=== PATIENT | female | born 1980 | race Caucasian/White ===

== ENCOUNTER → 2017-06-14 | Outpatient (CLI) | payer OTHER ==
[~2017-06-14] MED LIST: LEVOTHYROXIN0.125 M1 NG; NAPROSYN500 M1 PO; NORCO 325 MG-51 TAB PO; PHENERGAN 25MG.25 M1 PO; ROBAXIN-750750 MG PO
== END ==
LOC: LAB 16:59
DX: N39.0 Urinary tract infection, site not specified (principal); A49.9 Bacterial infection, unspecified; R30.9 Painful micturition, unspecified

== ENCOUNTER 2017-07-07 09:03 | Emergency (ER) | payer OTHER ==
[~2017-07-07] VITALS: Ht 160 cm; Wt 60.8 kg
--- NOTE | 2017-07-07 09:14 | Emergency Room Report ---
History of Present Illness Time Seen by MD Jacobo Presenting Problem in Triage Pt arrived:Walked Presenting Problem:RLQ ABDOMINAL PAIN SINCE YESTERDAY, WORSENING. DESCRIBES STABBING, PAIN WOKE UP PATIENT FROM SLEEP. ENDORSES NAUSEA. 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 N Clinical Suspician of Infection? N Mental Status: 1 - Regular (Normal Baseline) Sepsis Risk:Low Sepsis Risk Have you (or family members/close friends) recently traveled outside the [place]? N If Yes, where/when: Have you had exposure to infectious disease within the past month? TB? Other? Specify: Comment Patient complains of RIGHT lower quadrant abdominal pain that began yesterday and worsened today. It radiates toward her umbilicus and around towards her RIGHT lateral side. She denies back pain. She has nausea but no vomiting. No diarrhea, constipation or fever. No unusual vaginal bleeding. Previous uterine ablation. Denies previous similar pain. She went to Dr. Guerrero's office today, but was sent here without provider evaluation because of a concern for appendicitis. ALLERGIES Coded Allergies: morphine (Intermediate, "MAKES ME HOT INSIDE" 06/16/17) Home Medications Reported Medications Levothyroxine Sodium 0.125 MG NG DAILY #30 History Medical History General Angina: No [place]: No Hypertension? No Hyperlipidemia? No CHF? No COPD? No Asthma? Yes Hernia? No CVA? No Seizures? No Diabetes? No UTI? Yes Stones? No GB Disease: Yes Hepatitis? No Cataracts? No Glaucoma? No MRSA? No TB? No Cancer? 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 Review of Systems All Other Systems Reviewed and Negative Constitutional denies fever Gastrointestinal abdominal pain, denies constipation, denies diarrhea, nausea, denies vomiting Genitourinary denies: abnormal vaginal bleeding, dysuria, frequency. Physical Exam Vital Signs Vital Signs Date Time Temp Pulse Resp B/P Pulse O2 O2 Flow FiO2 Ox Delivery Rate 07/07 1028 97.9 79 20 120/74 100 07/07 0958 79 20 120/74 100 07/07 0910 97.9 79 20 143/87 100 General Appearance normal appearance, WD/WN Eye Exam - bilateral eye normal exam, bilateral eye PERRL, bilateral eye EOMI Ear, Nose, Throat hearing grossly normal, normal ENT inspection Neck normal inspection, non-tender, supple, full range of motion Respiratory Status Yes: trachea midline, chest symmetrical. No: respiratory distress. Lung Sounds bilateral: normal breath sounds, lungs clear. Cardiovascular normal exam, regular rate/rhythm, no peripheral edema, no gallop, no JVD, no murmur, no rub, normal peripheral pulses Gastrointestinal normal bowel sounds, normal exam, non tender, soft, no organomegaly Back no CVA tenderness Extremities normal inspection Neurologic alert, oriented x 3 Mental status normal mood/affect Skin intact, normal color, warm/dry Medical Decision Making LABS/Meds/Orders Pt receiving controlled substance in ED? No Comment 9:20 AM: Patient refuses pain medication. Results/Orders Laboratory Tests 07/07/17 0910: Sodium 138, Potassium 3.5, Chloride 103, Carbon Dioxide 29, BUN 13, Creatinine 1.0, Estimated Creat Clear 74, Estimated GFR (MDRD) 62, Glucose 93, Calcium 8.8, Total Bilirubin 0.9, AST 14 L, ALT 15, Alkaline Phosphatase 76, Total Protein 8.6 H, Albumin 4.3, Globulin 4.3 H, Albumin/Globulin Ratio 1.0 L, Amylase 81, Lipase 146, WBC 5.1, RBC 4.27, Hgb 13.0, Hct 37.9, MCV 88.7, RDW 12.7, Plt Count 275, MPV 7.9, Gran % 60.6, Gran # 3.1, Lymphocytes % 32.5, Monocytes % 4.9, Eosinophils % 1.5, Basophils % 0.5, Lymphocytes # 1.6, Monocytes # 0.3, Eosinophils # 0.1, Basophils # 0.0, PUBS MCHC 34.2, MCH 30.3, Urine Color YELLOW , Urine Appearance SL CLOUDY, Urine pH 6.5, Ur Specific [place] 1.020, Urine Protein NEGATIVE, Urine Ketones NEGATIVE, Urine Blood NEGATIVE, Urine Nitrate NEGATIVE, Urine Bilirubin NEGATIVE, Urine Urobilinogen 0.2, Ur Leukocyte Esterase NEGATIVE, Urine WBC 3-5, Ur Squamous Epith Cells 5-10, Urine Bacteria 3 +, Urine Mucus 1+, Urine Glucose NEGATIVE Current Medication Orders Sig/Carl Start time Last Medication Dose Route Stop Time Status Admin Iopamidol 75 ML ONCE ONE 07/07 1000 DCD 07/07 IV 07/07 1001 1000 Sodium Chloride 10 ML ONCE ONE 07/07 1000 DCD 07/07 IV 07/07 1001 1000 Sodium Chloride 1,000 ML .STK-MED ONE 07/07 0957 DC IV Sodium Chloride 10 ML PRN PRN 07/07 0930 DCD IV 07/08 0917 Sodium Chloride 1,000 ML .Q1H1M 07/07 09 DC 07/07 IV 07/07 1030 0921 Sodium Chloride 10 ML PRN PRN 07/07 0930 DCD IV 07/08 0918 Orders Procedure Date/time Status DIET-NOTHING BY MOUTH 07/07 L Active URINALYSIS/COMPLETE 07/07 922 Complete URINE 07/[address] ABD W/RLQ PAIN REQ 07/07 917 Complete IV SALINE LOCK 07/07 917 Active LIPASE 07/07 917 Complete CBC WITH AUTO DIFF 07/07 917 Complete CHEM 12 PROFILE 07/07 917 Complete AMYLASE 07/07 917 Complete CULTURE, URINE 07/07 910 Active XRAY/CT/US XRAY/CT/US CT abdomen, pelvis Comment CT scan interpreted by radiologist: No acute intra-abdominal or pelvic pathology. No evidence of appendicitis or obstructing ureteral calculus. Departure Departure Disposition DC Home or Self Care(routine) Clinical Impression Primary Impression: Abdominal pain, acute, right lower quadrant Condition STABLE Referrals ELVIA SIMPSON (Family) Patient Instructions DI for Abdominal Pain-Adult Additional Instructions Ibuprofen or Aleve for pain. Additional instructions for ABDOMINAL PAIN: Follow-up he is here physician next week if not resolved. Return immediately if worsening abdominal pain, vomiting, shortness of breath, fever, vomiting of blood or abdominal distention. ED Critical Care Critical Care No at 1051
[2017-07-07 09:30] LABS: LYMPH # 1.6 K/mm3 (0.7-4.5); LYMPH % 32.5 % (10-50.0)
[2017-07-07 09:31] LABS: URINE BILIRUBIN - DIPSTICK NEGATIVE (NEG); URINE BLOOD NEGATIVE (NEG)
--- NOTE | 2017-07-07 10:10 | RADIOLOGY REPORT PS360 ---
CT ABD PELVIS W/ CONTRAST CLINICAL INDICATION: Right lower quadrant pain with nausea RLQ ABD PAIN ORDERING PHYSICIAN: Mikey Mcintosh MD PATIENT AGE: 36 years COMPARISON: 04/21/2014 TECHNIQUE: Axial images obtained with sagittal and coronal reformats. PROCEDURE: Oral Contrast: None IV Contrast: 75 mL Isovue-370. FINDINGS: The lung bases are clear. There are small hypodensities scattered throughout the liver and may represents hepatic cyst not significant change. There is some mild intrahepatic biliary dilatation as well as dilated common hepatic and common bile duct. Patient has had a prior cholecystectomy which may contribute to these findings. Is not significantly changed. Spleen, pancreas, and adrenal glands have an unremarkable appearance. No renal mass or hydronephrosis or obstructing ureteral calculus evident. Unremarkable appendix. No evidence of intestinal obstruction or free air. No evidence of diverticulitis. There is mild prominence of the endometrium. This is of questionable clinical significance. Please correlate with patient's phase of menstruation. No acute bony anomalies IMPRESSION: 1. No acute intra-abdominal or pelvic pathology. No evidence of appendicitis or obstructing ureteral calculus 2. Prior cholecystectomy with biliary dilatation as before. 3. Prominent low attenuation of the endometrium of questionable clinical significance
[2017-07-07 10:28] VITALS: BP 120/74
--- OUTSIDE RECORDS SUMMARY | 2017-07-08 19:18 | External Medical Summary Rpt | CCD ---
Demographics Preferred Language Faroese Marital Status Unknown Zoroastrianism Affiliation Unknown Race Unknown Ethnic Group Unknown Author Author [facility] Address Unknown Phone Immunization No patient found.
--- OUTSIDE RECORDS SUMMARY | 2017-07-08 19:18 | External Medical Summary Rpt | CCD ---
Author Author , CYN ADDISON Address Unknown Phone [email or web address] Purpose Continuity of Care Document - 06-16-2017 through 2016 Problems Code Diagnosis DOS Provider Status R10.9 UNSPECIFIED ABDOMINAL PAIN S76.019A STRAIN OF MUSCLE, FASCIA AND TENDON OF UNSP HIP, INIT ENCNTR
--- OUTSIDE RECORDS SUMMARY | 2017-07-08 19:18 | External Medical Summary Rpt | CCD ---
Author Author [employer] Organization [employer] Address Unknown Phone Unavailable Purpose Continuity of Care Document - through 2016
--- OUTSIDE RECORDS SUMMARY | 2017-07-08 19:18 | External Medical Summary Rpt | CCD ---
Demographics Preferred Language Faroese Marital Status Unknown Restorationism Affiliation Unknown Race Unknown Ethnic Group Unknown Author Author [facility] Address Unknown Phone Immunization No patient found.
--- OUTSIDE RECORDS SUMMARY | 2017-07-08 19:18 | External Medical Summary Rpt ---
Author Author [employer] Sumit, [employer] Organization [employer] Address Unknown Phone Unavailable Results Choriogonadotropin [Units/volume] in Serum or Plasma Observa Value Referen Units Interpr Notes Date tion ce etation Range COMMENTS TO TURF SALES PERSON: GOT WITH IV Choriogon NEG No No No Sep 22 adotropin informati informati informati 2017 8:40 on in on in on in AM [Units/vo source source source lume] in data data data Serum or Plasma Basic metabolic panel in Blood Observa Value Referen Units Interpr Notes Date tion ce etation Range COMMENTS TO TURF SALES PERSON: GOT WITH IV Urea 7 - 18 mg/dL Normal No Sep 22 nitrogen informati 2017 8:40 [Mass/vol on in AM ume] in source Serum or data Plasma Calcium 8.5 - mg/dL Normal No Sep 22 [Mass/vol 10.1 informati 2017 8:40 ume] in on in AM Serum or source Plasma data Chloride 98 - 107 mmoL/L Normal No Sep 22 [Moles/vo informati 2017 8:40 lume] in on in AM Serum or source Plasma data Carbon 21.0 - mmoL/L Normal No Sep 22 dioxide, 32.0 informati 2017 8:40 total on in AM [Moles/vo source lume] in data Serum or Plasma Creatinin 0.55 - mg/dL Normal No Sep 22 e 1.02 informati 2017 8:40 [Mass/vol on in AM ume] in source Serum or data Plasma Estimated 59- ML/MIN No REFERENCE Sep 22 informati RANGE: 2017 8:40 glomerula on in >60 AM r source ML/MIN/1. filtratio data 73 SQUARE n rate METERSIf (GF this patient is -A merican, then multiply theresult by 1.210. Glucose 74 - 106 mg/dL Normal No Sep 22 [Mass/vol informati 2017 8:40 ume] in on in AM Serum or source Plasma data Potassium 3.5 - 5.1 mmoL/L Low No Sep 22 informati 2017 8:40 [Moles/vo on in AM lume] in source Serum or data Plasma Sodium 136 - 145 mmoL/L Normal No Sep 22 [Moles/vo informati 2017 8:40 lume] in on in AM Serum or source Plasma data CBC W Auto Differential panel in Blood Observa Value Referen Units Interpr Notes Date tion ce etation Range COMMENTS TO TURF SALES PERSON: GOT WITH IV Basophils 0 - 0.2 K/MM3 Normal No Sep 22 informati 2017 8:40 [#/volume on in AM ] in source Blood by data Automated count Basophils 0.1 - 2.0 % Normal No Sep 22 /100 informati 2017 8:40 leukocyte on in AM s in source Blood by data Automated count Eosinophi 0.0 - 0.4 K/mm3 Normal No Sep 22 ls informati 2017 8:40 [#/volume on in AM ] in source Blood by data Automated count Eosinophi 0.1 - % Normal No Sep 22 ls/100 12.0 informati 2016 8:40 leukocyte on in AM s in source Blood by data Automated count Granulocy 1.8 - 7.8 K/mm3 Normal No Sep 22 ramón informati 2017 8:40 [#/volume on in AM ] in source Blood by data Automated count Granulocy 37.0 - % Normal No Sep 22 ramón/100 80.0 informati 2017 8:40 leukocyte on in AM s in source Blood by data Automated count Hematocri 37.0 - % Normal No Sep 22 t [Volume 47.0 informati 2017 8:40 on in AM Fraction] source of Blood data Hemoglobi 12.2 - g/dL Normal No Sep 22 n 16.2 informati 2016 8:40 [Mass/vol on in AM ume] in source Blood data Lymphocyt 0.7 - 4.5 K/mm3 Normal No Sep 22 es informati 2016 8:40 [#/volume on in AM ] in source Unspecifi data ed specimen by Automated count Lymphocyt 10 - 50.0 % Normal No Sep 22 es informati 2016 8:40 [#/volume on in AM ] in source Unspecifi data ed specimen by Automated count Erythrocy 27 - 31.2 pg Normal No Sep 22 te mean informati 2016 8:40 corpuscul on in AM ar source hemoglobi data n [Entitic mass] Erythrocy 31.8 - g/dl Normal No Sep 22 te mean 35.4 informati 2017 8:40 corpuscul on in AM ar source hemoglobi data n concentra tion [Mass/vol ume] by Automated count Erythrocy 82.2 - fl Normal No Sep 22 te mean 97.8 informati 2017 8:40 corpuscul on in AM ar volume source [Entitic data volume] by Automated count Monocytes 0.1 - 1.0 K/mm3 Normal No Sep 22 informati 2017 8:40 [#/volume on in AM ] in source Blood by data Automated count Monocytes 1.7 - 9.3 % Normal No Sep 22 /100 informati 2017 8:40 leukocyte on in AM s in source Blood by data Automated count Platelet 7.4 - fl Normal No Sep 22 mean 10.4 informati 2017 8:40 volume on in AM [Entitic source volume] data in Blood by Automated count Platelets 142 - 424 K/mm3 Normal No Sep 22 informati 2017 8:40 [#/volume on in AM ] in source Blood data Erythrocy 4.2 - 5.4 M/mm3 Normal No Sep 22 ramón informati 2017 8:40 [#/volume on in AM ] in source Amniotic data fluid Erythrocy 11.5 - % Normal No Sep 22 te 17.5 informati 2016 8:40 distribut on in AM ion width source [Entitic data volume] by Automated count Leukocyte 4.8 - K/MM3 Normal No Sep 22 s 10.8 informati 2016 8:40 [#/volume on in AM ] in source Blood data
--- OUTSIDE RECORDS SUMMARY | 2017-07-08 19:18 | External Medical Summary Rpt | CCD ---
Author Author , CYN ADDISON Address Unknown Phone [email or web address] Purpose Continuity of Care Document - 06-16-2017 through 2016 Problems Code Diagnosis DOS Provider Status R10.9 UNSPECIFIED ABDOMINAL PAIN S76.019A STRAIN OF MUSCLE, FASCIA AND TENDON OF UNSP HIP, INIT ENCNTR
--- OUTSIDE RECORDS SUMMARY | 2017-07-08 19:18 | External Medical Summary Rpt ---
Author Author [employer] Sumit, [employer] Organization [employer] Address Unknown Phone Unavailable Results Choriogonadotropin [Units/volume] in Serum or Plasma Observa Value Referen Units Interpr Notes Date tion ce etation Range COMMENTS TO LINE PATROLLER: GOT WITH IV Choriogon NEG No No No Sep 22 adotropin informati informati informati 2017 8:40 on in on in on in AM [Units/vo source source source lume] in data data data Serum or Plasma Basic metabolic panel in Blood Observa Value Referen Units Interpr Notes Date tion ce etation Range COMMENTS TO LINE PATROLLER: GOT WITH IV Urea 7 - 18 [...] Date tion ce etation Range COMMENTS TO LINE PATROLLER: GOT WITH IV Basophils 0 - 0.2 [...]
== END 2017-07-07 10:36 | disposition home or self-care (01) ==
LOC: ER 09:03
PROVIDERS: Emergency Medicine
DX: R10.31 Right lower quadrant pain (principal); Z88.6 Allergy status to analgesic agent
CPT/HCPCS: Q9967

== ENCOUNTER → 2017-07-10 | Outpatient (CLI) | payer OTHER ==
[2017-07-10 11:27] LABS: HEMOGLOBIN 13.5 g/dL (12.2-16.2); LYMPH # 1.6 K/mm3 (0.7-4.5); LYMPH % 30.8 % (10-50.0)
== END ==
LOC: LAB 11:12
PROVIDERS: Physician Assistant
DX: R10.31 Right lower quadrant pain (principal)

== ENCOUNTER 2017-07-12 09:22 | Day surgery (SDC) | payer OTHER ==
--- NOTE | 2017-07-12 12:39 | Operative Note ---
Procedure/Operative Record Procedure Date of procedure: 07/12/17 Pre-Op Dx: Severe RIGHT lower quadrant pain, possible appendicitis Post-Op Dx: Severe RIGHT lower quadrant pain, possible appendicitis Procedure performed: Laparoscopy with laparoscopic removal of appendix Surgeon: Dr. Narciso Peguero Telephone Operator Chief(s): None Anesthesia: Milton Ramakrishna EBL (ml): 25 Clinical note: She is a 36-year-old lady who was seen in the ER last week with severe RIGHT lower quadrant pain. CT scan was negative for appendicitis. She continues however to have severe RIGHT lower quadrant pain. On examination she was exquisitely tender over McBurney's point. Did a transvaginal ultrasound was negative for any cysts or abnormalities. After having discussed the risk and benefits we elected to perform a laparoscopic appendectomy given her symptoms. Operative findings: She had a normal-appearing pelvis. There was a small amount of straw-colored fluid in the pelvis. The ovaries and tubes appeared normal. At the LEFT inguinal canal at the entrance of the round ligament there was a small hernia approximately 6 mm in size. The abdominal contents did not herniate through this small hernia. The uterus appeared normal. The deep pelvis appeared normal. Her appendix actually appeared normal as well. Operative note: She was taken the operating room where general anesthesia was found be adequate. She is prepped and draped in normal sterile fashion in the supine position. I injected 10 mL of 0.5 percent ropivacaine around the umbilicus and made a small incision within the umbilicus. I then inserted a Veress needle into the abdominal cavity. The abdominal cavity was then insufflated with carbon oxide gas to a pressure of 20 mmHg. I then injected through and through at the pubic hairline, made a small incision here and inserted a 5 mm trocar under direct vision. I identified the inferior epigastric arteries on the LEFT side, went lateral to these and inserted a 5 mm trocar under direct vision. I then grasped the appendix and using harmonic scalpel I cut along the meso appendix. I then changed to a 5 mm trocar at the LEFT lower quadrant port and clamped across her appendix base with an Endo AI. I then fired the Endo AI freeing up the appendix. I then placed an Endo Catch bag through the 12 m port and placed the appendix in the Endo Catch bag. It was removed through the 12 port. I then changed back to the 11 mm camera and once again inspected the pelvis. It was completely hemostatic. I then let the gas of the abdomen to once again assuring hemostasis and taking photographs of the appendiceal base. It was also completely hemostatic and dry. The secondary trochars were then removed under direct vision. The sites were hemostatic. The gas was let out of the abdomen and the primary trocar and camera were removed together. No bowel seen to follow. I closed the 12 mm trocar site with a [id number] deep 2-0 Vicryl suture. The skin was closed with subcu care 4-0 Monocryl suture. The 5 mm trocar sites were closed with subcu care 4-0 Monocryl suture. Sterile dressings were applied. She tolerated the procedure well and was taken to the recovery room in excellent condition. All sponge instrument and needle counts were correct. The estimated blood loss was minimal. Conplications: None Specimens: Appendix at 1233
--- NOTE | 2017-07-12 12:45 | Anesthesia Record ---
Anesthesia Record Part I Total IV fluids: 300 EBL (ml): 25 Urine Output: 0 B/P: 123/76 % SaO2: 99 Pulse: 86 Resps: 16 Temp: 97.9 Patient is: Drowsy, Stable Stable to PACU at: 1244 at 1243
--- NOTE | 2017-07-12 12:46 | Anesthesia Record ---
Anesthesia Record Part II Discharge time: 1314 Destination: Same day surgery PACU nurse assessment review? Yes Patient is: Stable Anesthesia complications? No at 1247
[2017-07-12 14:58] VITALS: BP 117/71
== END 2017-07-12 14:05 | disposition home or self-care (01) ==
LOC: SDC 09:22
PROVIDERS: Nurse Practitioner Obstetrics & Gynecology
PROC: 0DTJ4ZZ Resection of Appendix, Percutaneous Endoscopic Approach (ICD-10-PCS; principal; 2017-07-12 11:00)
DX: R10.31 Right lower quadrant pain (principal); K35.80 Unspecified acute appendicitis
CPT/HCPCS: J0131; J2405; J2710